=== PATIENT | female | born 1990 | race Caucasian/White ===

== ENCOUNTER 2016-07-25 18:29 | Emergency (ER) | payer OTHER ==
[~2016-07-25] VITALS: Ht 149.9 cm; Wt 55.9 kg
[2016-07-25 18:37] VITALS: BP 138/93; PULSE 93; RESP 20; O2SAT 99
--- NOTE | 2016-07-25 20:33 | ED.REPORT ---
HPI-General Illness Date of Service Jul 25, 2016 ED Provider: Carlos Posadas PA-C Celena is otherwise healthy 26-year-old female who presents emergency Department with lacerations on her right index and middle fingers. Patient reports she was cutting food with a mandolin and cut the tips of her fingers. Up-to-date on tetanus. No bleeding disorders or immunocompromise. Nursing Notes Stated Complaint: CUT TO RIGHT MIDDLE AND INDEX FINGERS Chief Complaint: Laceration Nursing Notes Reviewed: Yes Allergies: Coded Allergies: No Known Allergies (Unverified , 07/25/16) General Time Seen by MD: 18:59 Chief Complaint Laceration Review of Systems Negative unless stated otherwise in history of present illness Physical Exam General: Well appearing, well developed, well nourished, no acute distress. Head: Atraumatic, normocephalic. Eyes: No scleral icterus or injection. No discharge. Vision grossly intact. ENT: Voice clear, hearing grossly intact. Skin: Warm and dry. Neurological: Grossly nonfocal. Right index finger: 1 cm laceration at tip. Full strength and range of motion at MCP, PIP, DIP joints. ry Right middle finger: 2 cm flap laceration at tip, with involvement of the extreme distal 1 mm of the nail. Full strength and range of motion at MCP, PIP , DIP joints. Psychological: alert and oriented. Speech appropriate, linear and logical. Behavior appropriate. Vital Signs Vital Signs Date Time Temp Pulse Resp B/P Pulse Ox O2 Delivery O2 Flow Rate FiO2 07/25/16 18:37 36.6 93 20 138/93 99 Room Air Initial VS: Reviewed, Vital signs normal Procedures Laceration Management Procedure Performed by: Allied health pract Consent / Setup / Site Prep: Informed consent provided, Consent from patient , Hand hygiene observed, Stand sterile technique Wound Length: 1 cm Local Anesthesia: Lidocaine 1%, 5cc, 27g needle Digital Block: Yes Digit Involved: Index finger right Wound Preparation: Normal saline Foreign Body Explore / Removal: Explored for foreign body Repair Skin: Nylon (6-0) Closure Layers: 1 Suture Technique: Simple Post-Procedure / Complications: Antibiotic oint applied, Dressing applied, No complications, Condition improved, Tolerated procedure well, Patient stable Procedure Performed by: Allied health pract Consent / Setup / Site Prep: Informed consent provided, Consent from patient , Hand hygiene observed, Stand sterile technique Wound Length: 2 cm Local Anesthesia: Lidocaine 1%, 5cc, 27g needle Digital Block: Yes Digit Involved: Middle finger right Wound Preparation: Normal saline Foreign Body Explore / Removal: Explored for foreign body Repair Skin: Nylon (6-0) Closure Layers: 1 Suture Technique: Simple Post-Procedure / Complications: Antibiotic oint applied, Dressing applied, No complications, Condition improved, Tolerated procedure well, Patient stable Re-Eval/Medical Decision Med Decision/Clinical Course Otherwise healthy 26-year-old female who is up-to-date on tetanus shot presents with small lacerations and some of her right index and middle fingers. performed a digital block to index and middle fingers, though achieving anesthesia was difficult required quite a bit of lidocaine. Index finger has a fairly straightforward 1 cm laceration at the tip. Closed this with 3 interrupted 6-0 Ethilon sutures. Middle finger is slightly more complicated with a flap laceration at the tip involving the extreme distal portion of the fingernail. This is a thin flap with a very narrow attachment to the finger. I am concerned that there is a small blood supply. I tacked this down with 7 interrupted 6-0 Ethilon sutures. Applied antibiotic ointment, gauze dressing. Asked the patient return in 2 days for a wound check. I do not see any indication for antibiotics. Provided return precautions. Discharge & Departure Primary Impression: Laceration Disposition: Home Discharge Condition All VS Reviewed: Yes Condition: Stable Patient Instructions: Suture Care (ED) Additional Instructions: Evaluation for right first and second finger lacerations. Laceration to the index fingers approximately 1 cm long at the tip, and it was approximately 2 cm flap laceration at the end of the middle finger which involved the tip of the nail. We washed the wounds thoroughly, sutured them, and dressed them with antibiotic ointment and gauze. The pain is best treated with 400 mg of ibuprofen (Advil, Motrin) every 6 hours , or 1000 mg of acetaminophen (Tylenol) every 6 hours. These drugs can be taken at the same time for more severe pain. Recommend keeping the dressing on and dry for the next 24 hours. after that you can remove the dressing, wash with soap and water. Apply antibiotic ointment and reapply the dressing. I am concerned that the flap laceration on the middle finger has a very limited blood supply. The vision for signs of infection including increasing pain, redness, swelling, and appearance of pus. I would like you to return to the emergency department in 2 days for wound check. Return sooner for any new or worsening symptoms such as signs of infection, fever. Referrals: Eusebia Elizabeth (PCP) EDSupervising Provider for APC: Niraj Ordaz MD copies to: Eusebia Elizabeth Seth PA-C Jul 25, 2016 20:33
[2016-07-25 20:40] VITALS: BP 112/68
== END 2016-07-25 20:44 | disposition home or self-care (01) ==
LOC: SED 18:29
DX: S61.210A Laceration without foreign body of right index finger without damage to nail, initial encounter (principal); S61.212A Laceration without foreign body of right middle finger without damage to nail, initial encounter; W26.0XXA Contact with knife, initial encounter; Y92.9 Unspecified place or not applicable; Y93.G1 Activity, food preparation and clean up; Y99.8 Other external cause status